=== PATIENT | male | born 1955 | race Caucasian/White ===

== ENCOUNTER 2017-06-11 08:39 | Day surgery (SDC) | payer BC ==
[2017-06-10 10:50] VITALS: BMI 31.5
[2017-06-11] MEDS ORDERED: Hydrocortisone Sod Succ/PF 100 mg/2 ml Vial ONE ×2 (09:43→16:15)
[2017-06-11 09:54] LABS: #Eosinphils 0.1 thou/uL (0.0-0.7); #Lymphocytes 0.9 thou/uL (1.20-3.40); #Monocytes 0.7 thou/uL (0.11-0.59); #Neutrophils 5.4 thou/uL (1.40-6.50); %Basophils 0.4 % (0.0-1.0); %Eosinophils 1.2 % (0.0-10.0); %Monocytes 9.3 % (0.0-10.0); Hematocrit 47.4 % (42.0-52.0); Mean Platelet Volume 8.6 fL (7.4-10.4); Red Blood Cell (RBC) Count 4.61 mill/uL (4.70-6.10); White Blood Cell (WBC) Count 7.1 thou/uL (4.8-10.8)
[2017-06-11 10:05] LABS: ALT (SGPT) 36 U/L (8-55); AST (SGOT) 25 U/L (5-34); Alkaline Phosphatase 62 U/L (40-150); Anion Gap 12 mmol/L (10-20); BUN (Urea Nitrogen) 20 mg/dL (8.4-25.7); Bilirubin, Total 0.6 mg/dL (0.2-1.2); Calc. Creatinine Clearance 96 mL/min (70-130); Calcium 9.3 mg/dL (7.8-10.44); Carbon Dioxide 26 mmol/L (23-31); Chloride 102 mmol/L (98-107); Estimated GFR-MDRD 67; Globulin 3.6 g/dL (2.4-3.5); Protein, Total 7.6 g/dL (5.8-8.1)
[2017-06-11] MEDS ORDERED: Ketorolac Tromethamine 30 MG/ML VIAL ONE (10:13)
[2017-06-11] MEDS ORDERED: Bupivacaine/Epinephrine 0.25% 30 ML VIAL ONE (12:51)
[2017-06-11] MEDS ORDERED: Midazolam HCl 2 mg/2 ml Vial ONE (13:00)
[2017-06-11] MEDS ORDERED: Fentanyl 100 MCG/2 ML VIAL ONE (13:00)
[2017-06-11] MEDS ORDERED: Dexamethasone 20 MG/5 ML VIAL ONE (13:20)
[2017-06-11] MEDS ORDERED: Propofol 200 MG/20 ML VIAL ONE (13:20)
[2017-06-11] MEDS ORDERED: Ondansetron HCl/PF 4 MG/2 ML Vial ONE (13:20)
[2017-06-11] MEDS ORDERED: Lidocaine 1% PF 5 ML VIAL ONE (13:20)
[2017-06-11] MEDS ORDERED: SUGAMMADEX SODIUM 500 MG/5 ML VIAL ONE (14:00)
--- NOTE | 2017-06-11 23:32 | OP ---
DATE OF OPERATION: 06/11/2017 PREOPERATIVE DIAGNOSIS: Symptomatic cholelithiasis. POSTOPERATIVE DIAGNOSES: Severe hepatic changes with extensive evidence of inflammatory change arou nd the liver and in the upper abdomen. OPERATION PERFORMED: Diagnostic laparoscopy. SURGEON: Dr. Jalen Howard. ANESTHESIA: General endotracheal. INDICATIONS: The patient is a 61-year-old white male. He has a history of hepatitis C, which has b een previously treated. He was also diagnosed previously with cirrhosis and has the history of asci jose angel and cirrhosis and other cirrhosis associated problems. He presents at this time with symptoms r eferable to his gallbladder and ultrasound proven cholelithiasis. He was taken to the operating jame m at this time for planned laparoscopic cholecystectomy. DESCRIPTION OF OPERATION: Informed consent was obtained. Patient was taken to the operating room w here general endotracheal anesthesia was obtained with the patient in supine position. Abdomen was prepped with ChloraPrep and draped in sterile fashion. Patient had a prior infraumbilical incision from a prior umbilical hernia repair. I, therefore, decided to obtain access in the right upper shwetha drant. Local anesthetic was infiltrated using 0.25% Marcaine with epinephrine. A 5-mm incision was created through which Veress needle was passed into the peritoneal cavity and pneumoperitoneum esta blished using carbon dioxide up to pressure of 15 mmHg. A 5-mm trocar port was passed through this same incision. A laparoscopic camera was passed through this port. Under direct vision, an 11-mm s upraumbilical port was placed. There were adhesions to the area of the prior umbilical hernia repai r and these adhesions and bowel contents were all avoided. Attention was then turned to the upper a bdomen. There were noted to be extensive changes involving the liver. There was what appeared to b e a dense white material coating the liver. Initially, it appeared almost as purulence, but it coul d not be aspirated and/or abraded away easily. There were dense adhesions to the retroperitoneum la terally and to what appeared to be the transverse colon inferiorly. I could not see the gallbladder at all. There were adhesions of the right colon densely to the lateral abdominal wall and the colo n appeared to be adherent up to the falciform ligament. After assessing the situation, I made gentle attempts to see if any of the adhesions to the liver co uld be mobilized easily and these were clearly not going to mobilize easily. I, therefore, decided at this point that there would be in the patient's best interest to forgo attempts at cholecystectom y. Although he did have some degree of symptoms that were typical of gallbladder symptoms, I felt t hat this operation was more likely to cause him problems, then resolve problems. I documented all o f the findings internally with photograph. There was no blood loss or injury to anything as nothing was dissected. All ports and instruments were removed under direct vision. The fascial defect to 11 mm port site was closed with 0 Vicryl suture using a GraNee needle. Pneumoperitoneum was careful ly evacuated. Quarter percent Marcaine with epinephrine was infiltrated in each port site and skin edges approximated with 4-0 Monocryl subcuticular suture. Dermabond was placed externally. Patient tolerated the procedure well and was taken to recovery room in stable condition. Of note, there wa s some ascites that was aspirated from both within the pelvis and in the perihepatic space. This wa s an opaque appearing fluid that was tanned to light green in color. The total volume of this was only 1 to 200 mL and there was no evidence of other ascites during the course of the operation.
== END 2017-06-11 18:15 | disposition home or self-care (01) ==
LOC: SDC 08:39
PROVIDERS: ATTEND Specialist
PROC: 0WJP4ZZ Inspection of Gastrointestinal Tract, Percutaneous Endoscopic Approach (ICD-10-PCS; principal; 2017-06-11)
DX: K76.89 Other specified diseases of liver (principal); I10 Essential (primary) hypertension; H93.19 Tinnitus, unspecified ear; G43.909 Migraine, unspecified, not intractable, without status migrainosus; B18.2 Chronic viral hepatitis C; K74.60 Unspecified cirrhosis of liver; K74.1 Hepatic sclerosis; D69.6 Thrombocytopenia, unspecified; E66.9 Obesity, unspecified; R16.1 Splenomegaly, not elsewhere classified; K21.9 Gastro-esophageal reflux disease without esophagitis; M06.9 Rheumatoid arthritis, unspecified; E78.1 Pure hyperglyceridemia; L40.50 Arthropathic psoriasis, unspecified; E03.9 Hypothyroidism, unspecified; Z68.31 Body mass index [BMI] 31.0-31.9, adult; Z79.52 Long term (current) use of systemic steroids; Z79.899 Other long term (current) drug therapy; Z98.52 Vasectomy status; Z98.890 Other specified postprocedural states; Z87.891 Personal history of nicotine dependence; Z80.3 Family history of malignant neoplasm of breast
CPT/HCPCS: 36415; 80053; 85025; 93005; 93010; 96374; J0131; J1100; J1720; J1885; J2001; J2250; J2405; J2704; J3010

== ENCOUNTER 2017-12-01 07:22 | Outpatient (CLI) | payer BC ==
--- NOTE | 2017-12-01 08:28 | ULT ---
ABDOMINAL ULTRASOUND: History: Evaluate for ascites. Comparison: None. Technique: Utilizing a multihertz transducer, sonographic images of the abdomen were performed in the longitudinal and transverse plane. FINDINGS: There is suboptimal evaluation of the pancreas, aorta and inferior vena cava. Increased echogenicity of the liver may be due to hepatic steatosis or hepatocellular disease. Limite d evaluation of hepatic masses and intrahepatic biliary dilatation. Right hepatic lobe measures 17.3 cm. Main portal vein is patent. Appropriate direction of flow. Common bile duct diameter is 0.3 cm. Within the gallbladder, there are echogenic foci compatible with gallstones. Gallbladder wall is not thickened. No pericholecystic fluid. Negative Spicer's sign. Both kidneys have a normal cortical echotexture. Bilaterally, no hydronephrosis. Right kidney measure s 11.1 x 5.5 x 5.3 cm. Left kidney measures 11.7 x 4.5 x 4.7 cm. There is a small amount of free fluid in the left lower quadrant. Spleen is enlarged measuring 15.4 cm. IMPRESSION: 1. Mild hepatosplenomegaly. 2. Small amount of free fluid in the left lower quadrant. The amount of fluid is not amendable to per cutaneous paracentesis. 3. Sonographic evidence of cholelithiasis without evidence of cholecystitis. POS: [facility]
== END 2017-12-01 07:23 | disposition home or self-care (01) ==
LOC: ULT 07:22
PROVIDERS: ATTEND Internal Medicine Gastroenterology
DX: R18.8 Other ascites (principal); B18.2 Chronic viral hepatitis C; K74.60 Unspecified cirrhosis of liver; R16.2 Hepatomegaly with splenomegaly, not elsewhere classified; K80.20 Calculus of gallbladder without cholecystitis without obstruction
CPT/HCPCS: 76700

== ENCOUNTER 2020-02-13 07:59 | Outpatient (CLI) | payer MEDICARE, BC ==
--- NOTE | 2020-02-13 10:15 | ULT ---
HEPATIC DOPPLER: Date: 02/13/2020 HISTORY: CIRRHOSIS FINDINGS: There is minimal ascites. Echotexture is very coarse. Evidence for nonspecific hepatic parenchymal pr ocess. Gallbladder demonstrates evidence for sludge and gallstones without overt gallbladder wall thi ckening. Common bile duct 0.6 cm. Marked splenomegaly up to 17.4 cm. Vascular duplex examination demonstrates hepatic and portal venous flow to be antegrade. IMPRESSION: 1. Coarse altered liver echotexture. 2. Marked splenomegaly. 3. Gallstones and sludge in the gallbladder without overt pericholecystic edema. 4. Minimal ascites and right pleural effusion. 5. Antegrade portal and hepatic venous flow. POS: [facility]
== END 2020-02-13 08:00 | disposition home or self-care (01) ==
LOC: BICULT 07:59
PROVIDERS: ATTEND Internal Medicine Gastroenterology
DX: K74.60 Unspecified cirrhosis of liver (principal); B18.2 Chronic viral hepatitis C; I85.10 Secondary esophageal varices without bleeding; D75.89 Other specified diseases of blood and blood-forming organs; R93.2 Abnormal findings on diagnostic imaging of liver and biliary tract; R16.1 Splenomegaly, not elsewhere classified; K80.20 Calculus of gallbladder without cholecystitis without obstruction; R18.8 Other ascites; J90 Pleural effusion, not elsewhere classified
CPT/HCPCS: 76705